=== PATIENT | female | born 2000 | race Two or more races ===

== ENCOUNTER 2020-10-28 05:21 | Emergency (ER) | payer OTHER ==
[~2020-10-28] VITALS: Ht 167.6 cm; Wt 62.1 kg
[2020-10-28] MEDS ORDERED: BUPROPION HCL200 M1 (05:45)
[2020-10-28] MEDS ORDERED: ATIVAN1 M1 (05:45)
[2020-10-28] MEDS ORDERED: RISPERDAL2 MG (05:45)
[2020-10-28] MEDS ORDERED: DEPAKOTE ER500 MG (05:46)
== END 2020-10-28 13:43 | disposition home or self-care (01) ==
LOC: ER 05:21
DX: R07.89 Other chest pain (principal); M94.0 Chondrocostal junction syndrome [Tietze]; R00.2 Palpitations